=== PATIENT | female | born 1935 | race Caucasian/White ===

== ENCOUNTER → 2017-01-27 | Outpatient (CLI) | payer OTHER ==
[2013-10-11 14:42] VITALS: BP 135/62
--- NOTE | 2017-02-02 16:11 | MG ---
HISTORY: Screening Study: Bilateral digital screening mammography with CAD Comparison: Multiple previous exams dating back to January 17, 2013 Technique: Cc and MLO views of both breasts were obtained. Findings: There is scattered fibroglandular parenchyma with a scar marker noted on the left without significant interval change. There is no mass, architectural distortion, or suspicious clustered microcalcificat ion. There is no skin thickening or nipple retraction. No pathologic lymphadenopathy is identified. B enign calcifications are noted in both breasts. IMPRESSION: No radiographic evidence of malignancy. BI-RADS 2. Benign findings. Yearly mammographic imaging is recommended. * 0 (ZERO) - ASSESSMENT INCOMPLETE; ADDITIONAL IMAGING IS NEEDED. * 1/1 (ONE) - NEGATIVE. * 2/II (TWO) - BENIGN FINDINGS. * 3/III (THREE) - PROBABLY BENIGN FINDING; SHORT INTERVAL FOLLOW-UP SUGGESTED. * 4/IV (FOUR) - SUSPICIOUS ABNORMALITY; BIOPSY SHOULD BE CONSIDERED. * 5/V (FIVE) - HIGHLY SUSPICIOUS OF MALIGNANCY; BIOPSY SHOULD BE PERFORMED. * 6/ (SIX) - KNOWN MALIGNANCY. A NEGATIVE X-RAY REPORT SHOULD NOT DELAY BIOPSY IF A DOMINANT OR CLINICALLY SUSPICIOUS MASS IS PRESENT; 4 TO 8 PERCENT OF CANCERS ARE NOT IDENTIFIED BY X-RAY. A NEGA TIVE REPORT MAY REINFORCE THE CLINICAL IMPRESSION. ADENOSIS AND DENSE BREASTS MAY OBSCURE AN UNDERLY ING NEOPLASM. Reported By:
== END ==
LOC: RAD 13:25
PROVIDERS: ATTEND Specialist
DX: Z12.31 Encounter for screening mammogram for malignant neoplasm of breast (principal)
CPT/HCPCS: 77067